=== PATIENT | female | born 1935 | race Caucasian/White ===

== ENCOUNTER 2023-06-02 13:39 | Outpatient (CLI) | payer MEDICARE | END 2023-06-02 13:40 | disposition home or self-care (01) | LOC: CSHRAD 13:39 | PROVIDERS: ATTEND Surgery | DX: M54.50 Low back pain, unspecified (principal); S22.081D Stable burst fracture of T11-T12 vertebra, subsequent encounter for fracture with routine healing | CPT/HCPCS: 72100 ==